=== PATIENT | female | born 1985 | race Caucasian/White ===

== ENCOUNTER 2023-09-10 09:31 | Outpatient (CLI) | payer OTHER, SELFPAY | END 2023-09-10 09:32 | disposition home or self-care (01) | PROVIDERS: Visit Provider Obstetrics & Gynecology | DX: Z13.228 Encounter for screening for other metabolic disorders (principal); Z13.220 Encounter for screening for lipoid disorders; Z13.29 Encounter for screening for other suspected endocrine disorder | CPT/HCPCS: 80048; 80061; 84443 ==

== ENCOUNTER 2023-09-25 12:08 | Outpatient (CLI) | payer OTHER, SELFPAY ==
--- NOTE | 2023-09-25 12:15 | US_ITS ---
Patient: GENE HESS Facility:?[facility] Patient ID:?[id number] Site Patient ID:?[id number]. Site :?[id number] Study:?US-OB Pelvis TA/TV Pelvic US-09/25/2023 1:25:06 PM Ordering Physician:?Claudia Mohan Final Report: INDICATION: Missing IUD string TECHNIQUE: Transabdominal and transvaginal scanning was performed. Transvaginal scanning was performed to optimally evaluate the endometrium and adnexa. Ovarian blood flow was evaluated with color-flow and pulsed Doppler. COMPARISON: Pelvic ultrasound of 06/16/2020 FINDINGS: The uterus is borderline enlarged and grossly normal in shape apart from a C- section scar. The uterus measures 9.1 x 4.5 x 6.0 cm. No myometrial mass is evident. The endometrial stripe is normal in thickness at 5 mm. An IUD is present in the uterine cavity and appears to be properly positioned. The ovaries are grossly negative. The right ovary measures 3.8 x 2.3 x 1.8 cm and left 2.7 x 1.8 x 1.6 cm. Ovarian blood flow is demonstrated with color-flow and pulsed Doppler. No adnexal mass is evident. No free fluid is demonstrated. Appears to be a loop of fluid-containing bowel in the cul-de-sac on several images. IMPRESSION: 1. Properly positioned IUD. 2. Borderline enlarged uterus. Dictated by Jorge Del Rio MD @ 09/26/2023 10:56:55 AM Signed by:?Jorge Del Rio MD @09/26/2023 10:56:55 AM (Electronic Signature)
== END 2023-09-25 12:09 | disposition home or self-care (01) ==
LOC: US 12:09
PROVIDERS: Visit Provider Obstetrics & Gynecology
DX: T83.32XA Displacement of intrauterine contraceptive device, initial encounter (principal); N85.2 Hypertrophy of uterus
CPT/HCPCS: 76830; 76856

== ENCOUNTER 2024-10-05 09:05 | Outpatient (CLI) | payer OTHER, SELFPAY ==
[2024-10-08 03:37] LABS: HPV Source Cervical; HPV, High Risk by TMA Not Detected
== END 2024-10-05 09:06 | disposition home or self-care (01) ==
PROVIDERS: PCP Physician Assistant Medical; Visit Provider Obstetrics & Gynecology
DX: Z12.4 Encounter for screening for malignant neoplasm of cervix (principal); Z11.51 Encounter for screening for human papillomavirus (HPV)
CPT/HCPCS: 87624; 87625; 88141; 88142

== ENCOUNTER 2025-01-13 08:10 | Outpatient (CLI) | payer OTHER, SELFPAY ==
--- NOTE | 2025-01-13 08:15 | CRLHL7_ITS ---
For Patients: As a result of the Century Cures Act, medical imaging exams and procedure reports are released immediately into your electronic medical record. You may view this report before your referring provider. If you have questions, please contact your health care provider. INDICATION: BILATERAL SCREENING MAMMOGRAM, ASYMPTOMATIC 39 Y/O FEMALE COMPARISON: BASELINE TECHNIQUE: Digital mammogram in CC and MLO projections including computer-aided detection (CAD) and tomosynthesis. BREAST COMPOSITION: The breasts are heterogeneously dense, which may obscure small masses. FINDINGS: No suspicious findings. ASSESSMENT: BI-RADS 1 Negative RECOMMENDATION: Annual screening mammogram. A lay language report of this examination will be provided to the patient. Dictated by: Erick Roberts MD @ 01/14/2025 08:52:51 (Electronically Signed)
== END 2025-01-13 08:11 | disposition home or self-care (01) ==
LOC: MAMMO 08:11
PROVIDERS: PCP Physician Assistant Medical; Visit Provider Obstetrics & Gynecology
DX: Z12.31 Encounter for screening mammogram for malignant neoplasm of breast (principal); R92.333 Mammographic heterogeneous density, bilateral breasts
CPT/HCPCS: 77063; 77067

== ENCOUNTER 2025-01-21 08:20 | Outpatient (CLI) | payer OTHER, SELFPAY | END 2025-01-21 08:21 | disposition home or self-care (01) | LOC: NFLDREF 01-25 17:46 | PROVIDERS: PCP Physician Assistant Medical; Referring Provider Physician Assistant Medical; Visit Provider Physician Assistant Medical | DX: Z00.00 Encounter for general adult medical examination without abnormal findings (principal); I10 Essential (primary) hypertension; E78.5 Hyperlipidemia, unspecified | CPT/HCPCS: 80053; 80061; 84443 ==

== ENCOUNTER 2025-03-09 11:43 | Outpatient (CLI) | payer OTHER, SELFPAY ==
--- NOTE | 2025-04-19 14:12 | W.PM.SLEEP ---
Sleep Study Details Details Interpreting Provider: Paco Date of Sleep Study: 03/09/25 Sleep Study Details: STUDY TYPE:? Home unattended ? BMI:? 42.91 ORDERING PROVIDER:Radah Cantor INDICATION:? Concern for sleep apnea ? SLEEP SUMMARY:? 413.5 minutes monitored RESPIRATORY SUMMARY:? AHI 14.4 per rule 1A, 7.0 per CMS guideline Low oxygen 88 Snoring 98% PERIODIC LIMB MOVEMENTS OF SLEEP:? Not recorded CARDIAC:? Range 63-95, mean 76.7 beats per minute IMPRESSION:? Mild obstructive sleep apnea RECOMMENDATION: Treatment options include weight loss which is recommended, CPAP, dental appliance and/or airway expansion surgery.
== END 2025-03-09 11:44 | disposition home or self-care (01) ==
LOC: SLEEP 11:43
PROVIDERS: PCP Physician Assistant Medical; Visit Provider Physician Assistant Medical
DX: G47.33 Obstructive sleep apnea (adult) (pediatric) (principal)
CPT/HCPCS: 95806